=== PATIENT | male | born 1960 | race Caucasian/White ===

== ENCOUNTER → 2020-05-04 | Day surgery (SDC) | payer MEDICARE, OTHER ==
[~2020-05-04] VITALS: Ht 165.1 cm; Wt 74.8 kg
[~2020-05-04] MED LIST: ASPIRIN CHEWABL81 MG PO; ATORVASTATIN CA10 MG PO; CELECOXIB200 MG PO; CLARITIN 10MG T10 MG PO; LISINOPRIL10 MG PO; LOPRESSOR 25 MG25 MG PO; VITAMIN D21250 MCG PO
== END | disposition home or self-care (01) ==
LOC: OR 06:39
DX: K64.1 Second degree hemorrhoids (principal); K70.0 Alcoholic fatty liver; K86.89 Other specified diseases of pancreas; I10 Essential (primary) hypertension; E78.5 Hyperlipidemia, unspecified; J44.9 Chronic obstructive pulmonary disease, unspecified; Z87.891 Personal history of nicotine dependence
CPT/HCPCS: J2704; J3010; J7040